=== PATIENT | female | born 1980 | race Caucasian/White ===

== ENCOUNTER 2022-02-14 14:18 | Emergency (ER) | payer MEDICAID ==
[~2022-02-14] VITALS: Ht 162.6 cm; Wt 59.0 kg
[2022-02-14] MEDS ORDERED: LORAZEPAM 1MG TABLET PO ONE (15:00)
[2022-02-14] MEDS ORDERED: OLANZAPINE 5MG TABLET ODT PO ONE ×2 (15:00→17:00)
[2022-02-14 15:38] LABS: BASOPHILS % 0.9 % (0.0-2.0); EOSINOPHILS % 0.3 % (0.0-5.0); HEMOGLOBIN. 12.9 g/dL (12.0-16.0); LYMPHOCYTES % 20.9 % (20.0-50.0); MEAN CORPUSCULAR HEMOGLOBIN 27.6 pg (28.0-32.0); MEAN CORPUSCULAR VOLUME 85.4 fL (81.0-99.0); MEAN PLATELET VOLUME 8.4 fl (7.4-10.4); MONOCYTES % 6.5 % (2.0-8.0); NEUTROPHILS % 71.4 % (40.0-76.0); PLATELET 262 x1000/uL (130-400); RED BLOOD CELL COUNT 4.69 mill/uL (4.2-5.4); RED CELL DISTRIBUTION WIDTH 16.4 % (11.6-14.6)
[2022-02-14 15:45] LABS: CHLORIDE 106 mEq/L (98-107)
[2022-02-14 15:47] LABS: CLARITY URINE CLEAR (CLEAR); COLOR URINE YELLOW (YELLOW); KETONES URINE NEGATIVE (NEGATIVE); LEUKOCYTE ESTERASE URINE NEGATIVE (NEGATIVE); NITRITE URINE NEGATIVE (NEGATIVE); OCCULT BLOOD URINE NEGATIVE (NEGATIVE); PROTEIN URINE NEGATIVE (NEGATIVE); SPECIFIC GRAVITY URINE 1.007 (1.005-1.030); UROBILINOGEN URINE 0.2 E.U./dL (0.2-1.0)
[2022-02-14 15:50] LABS: ETHANOL BLOOD < 10 mg/dL
[2022-02-14 15:55] LABS: HCG SCREEN NEGATIVE
[2022-02-14 16:12] LABS: *AMPHETAMINES SCREEN URINE NEGATIVE (NEGATIVE); *BARBITURATES SCREEN URINE NEGATIVE (NEGATIVE); *BENZODIAZEPINES SCREEN URINE NEGATIVE (NEGATIVE); *COCAINE SCREEN URINE NEGATIVE (NEGATIVE); CANNABINOID URINE SCREEN NEGATIVE (NEGATIVE); PHENCYCLIDINE URINE SCREEN NEGATIVE (NEGATIVE)
[2022-02-14 16:13] LABS: METHADONE URINE SCREEN NEGATIVE (NEGATIVE); OPIATES URINE SCREEN NEGATIVE (NEGATIVE)
[2022-02-14] MEDS ORDERED: OLANZAPINE 5MG TABLET ODT PO NR (17:00)
[2022-02-14] MEDS ORDERED: LORAZEPAM 1MG TABLET PO NR (17:00)
[2022-02-15] MEDS ORDERED: QUETIAPINE FUMARATE 50MG TABLET PO SCH (21:00)
[2022-02-16] MEDS ORDERED: LORAZEPAM 1MG TABLET PO ONE (00:30)
[2022-02-16] MEDS ORDERED: OLANZAPINE 5MG TABLET PO SCH (01:15)
[2022-02-16 08:22] VITALS: BP 104/70
== END 2022-02-16 09:15 | disposition home or self-care (01) ==
LOC: ER 14:18
DX: R45.851 Suicidal ideations (principal); F17.200 Nicotine dependence, unspecified, uncomplicated; Z86.59 Personal history of other mental and behavioral disorders; Z20.822 Contact with and (suspected) exposure to COVID-19
CPT/HCPCS: 36415; 80053; 80305; 80307; 80320; 80329; 81003; 84703; 85025; 99285; C9803; U0003; U0005; G0480